=== PATIENT | male | born 1990 | race Caucasian/White ===

== ENCOUNTER 2022-04-20 12:28 | Emergency (ER) | payer OTHER ==
[2022-04-20] MEDS ORDERED: Ketorolac Tromethamine 30 MG/ML VIAL ONE (13:03)
== END 2022-04-20 14:15 | disposition home or self-care (01) ==
LOC: ERS 12:28
DX: M25.552 Pain in left hip (principal); M54.50 Low back pain, unspecified; F17.220 Nicotine dependence, chewing tobacco, uncomplicated
CPT/HCPCS: 72170; 96372; J1885

== ENCOUNTER 2024-10-11 14:11 | Outpatient (CLI) | payer OTHER | END 2024-10-11 14:12 | disposition home or self-care (01) | LOC: BICRAD 14:11 | DX: S93.402A Sprain of unspecified ligament of left ankle, initial encounter (principal); M79.89 Other specified soft tissue disorders ==